=== PATIENT | female | born 1980 | race Caucasian/White ===

== ENCOUNTER 2016-08-09 06:20 | Day surgery (SDC) | payer OTHER ==
[2016-08-08 12:12] VITALS: BMI 34.5
[2016-08-09] MEDS ORDERED: Midazolam 2 MG/2 ML VIAL ONE (07:27)
[2016-08-09] MEDS ORDERED: Propofol 10 mg/ml Inj (20 ML) ONE (07:27)
[2016-08-09] MEDS ORDERED: Lactated Ringer's 1,000 ML IV ONE ×2 (07:40→08:30)
[2016-08-09] MEDS ORDERED: cefOXitin IV 2 gm in Dextrose 2 GM/50 ML BAG IVPB ONE (07:55)
[2016-08-09] MEDS ORDERED: HYDROmorphone 0.5 mg/0.5 ml ISec IVP PRN (08:36)
--- NOTE | 2016-08-09 09:05 | OP ---
PROCEDURE DATE: 08/09/2016 PREOPERATIVE DIAGNOSES: Retained cerclage. POSTOPERATIVE DIAGNOSES: Retained cerclage. PROCEDURE: Hysteroscopy, removal of cerclage. FINDINGS: Two separate cerclage sutures, none of them pushing into the endocervical canal, which dulce maria sanchez removed. SURGEON: Tali Salgado MD. ANESTHESIA: General. ESTIMATED BLOOD LOSS: Less than 1 mL. COMPLICATIONS: Nil. After the risks, benefits, and alternatives of the planned procedures including, but not limited to i nfection, hemorrhage, deep vein thrombosis, atelectasis, pneumonia, pulmonary embolism, damage to lainey dder, damage to ureter, renal insufficiency, renal failure, wound infection, wound dehiscence, incisi onal hernia, keloid formation, damage to large and small intestine, damage to inferior vena cava and the aorta requiring extensive repair, anesthesia complications, electrolyte imbalance, possibility of , fluid overload, cerebral edema, embolism, and other complications that were discussed, but ar e not listed above had been explained to the patient and all her questions answered, informed consent was obtained. The patient was taken to the operating room in a stable condition. Under suitable le beena of general anesthesia, she was prepped and draped in a sterile fashion after having been placed i n a dorsal lithotomy position. A weighted speculum was inserted into the vagina. The anterior lip o f the cervix was grasped using a single tooth tenaculum. Cervical cerclage suture were then removed by cutting them with the help of suture scissors. The cervix was then dilated. The hysteroscope was inserted into the endocervical canal which showed no foreign bodies in the endocervical canal or in the endometrium. At the end of the procedure, instruments were removed from the vagina. The patient was then transferred to the recovery room in a stable condition. Pad, needle, and instrument counts were correct x 2. Prior to completion of the procedure, a bleeding point on the anterior lip of the cervix at the tenaculum site was closed with the help of a 3-0 chromic suture [id number]. Inst ruments were then removed from the vagina. There was good hemostasis. Pad and instrument counts wer e correct x 2. There were no complications. Tali Salgado MD cc: [id number] TT: 08/09/2016 09:04:56 tn
[2016-08-09 10:03] VITALS: BP 150/84; PULSE 59; RESP 15; TEMP 97.3; O2SAT 98
== END 2016-08-09 10:00 | disposition home or self-care (01) ==
LOC: C.SDS 06:20
PROVIDERS: ATTEND Obstetrics & Gynecology Reproductive Endocrinology
DX: T19.2XXA Foreign body in vulva and vagina, initial encounter (principal); N92.0 Excessive and frequent menstruation with regular cycle; M79.5 Residual foreign body in soft tissue
CPT/HCPCS: 58562; 88300; J0694; J1100; J2001; J2250; J2405; J2704; J3010; J7120